=== PATIENT | female | born 1945 | race Hispanic/Latino ===

== ENCOUNTER 2018-06-24 07:20 | Day surgery (SDC) | payer MEDICARE, BC ==
[2018-06-02 11:01] VITALS: BMI 24.3
--- NOTE | 2018-06-24 04:15 | HP ---
REASON FOR ADMISSION: Left heart cath, possible angioplasty, abnormal stress test, chest pain. BRIEF CLINICAL HISTORY: This is a 73-year-old female with a past medical history significant for diabetes, hypertension, hyperlipidemia, complaining of chest discomfort and patient underwent a stress test that is abnormal. The patient is scheduled for elective cardiac cath and possible angioplasty. PAST MEDICAL HISTORY: Significant for diabetes, hypertension, hyperlipidemia. RECENT CARDIAC WORKUP: As follows: Patient had echocardiography done dated 06/07/2018 that shows ejection fraction of 65%, moderate mitral regurgitation, mild tricuspid regurgitation, RV systolic pressure of 33, ejection fraction calculated at 61% dated 06/07/2018. Patient also had stress test done, Lexiscan dated 06/02/2018 that shows probably abnormal myocardial perfusion study, partial reversible anteroseptal apical defect, suspicious for ischemia. Ejection fraction 58% dated 06/02/2018. SOCIAL HISTORY: Denies smoking. Denies any history of alcohol abuse. CURRENT MEDICATIONS: Patient is taking acetaminophen for arthritis, fenofibrate, aspirin, omega 3, insulin, multivitamin, Micardis 20 mg daily, metoprolol tartrate 50 mg twice a day, and metformin 1 g twice a day. ALLERGIES: ALLERGY TO SHELLFISH DERIVED. REVIEW OF SYSTEMS: As per HPI. PHYSICAL EXAMINATION: VITAL SIGNS: Height of the patient is 5 feet 10 inches, weight of the patient is 170 pounds, body mass index 28 kg/sq m. Temperature afebrile, heart rate 73, blood pressure 130/80. HEENT: PERRLA. Extraocular muscles intact. NECK: Supple. No carotid bruits or thyromegaly. CHEST: Clear to auscultation. HEART: S1 and S2 regular. ABDOMEN: Soft. EXTREMITIES: Clubbing and cyanosis negative. LABORATORY DATA: Blood workup pending. IMPRESSION: A 73-year-old female with a past medical history of diabetes, hypertension, hyperlipidemia, abnormal stress test, apical anterolateral defect suspicious of ischemia, ejection fraction 56%, rule out coronary artery disease, moderate mitral regurgitation, mild tricuspid regurgitation, right ventricular systolic pressure of 35, ejection fraction by echo 65%. RECOMMENDATION: We will do cardiac catheterization. Further recommendations after cardiac catheterization. We will await for the blood workup and if found to be within normal limits, we will load patient with 300 mg of Plavix and aspirin. Further recommendations after cardiac catheterization. Risks, benefits, and alternatives discussed with patient. Patient agrees. We will proceed for cardiac catheterization. Thank you, Nayla Spann, for providing us the opportunity in taking care of patient, Dulce Pineda. Nica Morataya MD
[2018-06-24 08:23] LABS: BASO # 0.02 K/mm3 (0.0-2.0); BASO % 0.3 % (0.0-3.0); EOS # 0.2 (0.0-0.7); EOS % 2.8 % (1.5-5.0); GRAN # 3.19 (1.4-6.5); GRAN % 49.2 % (50.0-68.0); LYMPH # 2.4 (1.2-3.4); LYMPH % 36.6 % (22.0-35.0); MEAN CELL VOLUME 88.3 fl (80.0-105.0); MEAN CORPUSCULAR HEMOGLOBIN 28.2 pg (25.0-35.0); MEAN PLATELET VOLUME 10.5 fl (7.0-11.0); MONO # 0.7 (0.1-0.6); MONO % 11.1 % (1.0-6.0); RBC 4.96 10^6/uL (3.5-6.1); RED CELL DISTRIBUTION WIDTH 13.8 % (11.5-14.5); WHITE BLOOD COUNT 6.5 10^3/ul (4.5-11.0)
[2018-06-24 08:27] VITALS: O2SAT 99
[2018-06-24 08:27] LABS: INR 0.97; PARTIAL THROMBOPLASTIN TIME 32.8 Seconds (25.1-36.5); PROTHROMBIN TIME 11.1 SECONDS (9.4-12.5)
[2018-06-24 08:40] LABS: BLOOD UREA NITROGEN 28 mg/dL (7-21); CALCIUM 9.5 mg/dL (8.4-10.5); GFR NON-AFRICAN AMERICAN > 60; HDL CHOLESTEROL 49 mg/dL (29-60)
[2018-06-24 08:50] LABS: LDL CHOLESTEROL 106 mg/dL (0-129)
[2018-06-24] MEDS ORDERED: DiphenhydrAMINE 50 mg/ml Inj ONE (11:09)
[2018-06-24] MEDS ORDERED: Famotidine 20mg/50ml 20 MG/50 ML BAG IVPB ONE (11:09)
[2018-06-24] MEDS ORDERED: Lidocaine PF 2% (5 ml) Inj (For Cardiac Arrhy) ONE (11:44)
[2018-06-24] MEDS ORDERED: Iohexol 350mgl/ml 50 ML ONE (11:45)
[2018-06-24] MEDS ORDERED: Heparin 2,000 ML IV ONE (11:45)
[2018-06-24] MEDS ORDERED: Iodixanol 320 MG/ML 100 ML BOTTLE IV ONE (11:45)
[2018-06-24] MEDS ORDERED: Iodixanol 320 MG/ML 200 ML BOTTLE IV ONE (11:45)
[2018-06-24] MEDS ORDERED: Midazolam 2 MG/2 ML VIAL ONE ×2 (11:59→12:19)
[2018-06-24] MEDS ORDERED: Eptifibatide 20 mg/10mL Inj IVP ONE (12:22)
[2018-06-24] MEDS ORDERED: ACETAMINOPHEN 650 MG PO PRN (13:09)
[2018-06-24] MEDS ORDERED: Sodium Chloride 0.9% 1,000 ML IV SCH (13:15)
--- NOTE | 2018-06-24 13:22 | CPOSTOP ---
DATE: 06/24/2018 CARDIOVASCULAR LAB POST PROCEDURE NOTE DICTATING PHYSICIAN: Nica Morataya MD SAND CLEANING MACHINE OPERATOR: [place] c2 tactical analysis technician. TYPE OF ANESTHESIA: Moderate conscious sedation. Total 2 mg of Versed and 100 of fentanyl given. Periodically started 1 mg of Versed and 50 of fentanyl. PRE-PROCEDURE DIAGNOSES: Chest pain, unstable angina, preoperative for abdominal fistula surgery, abnormal stress test. PROCEDURE PERFORMED: Left heart catheterization and stenting of left anterior descending mid with bare metal stent. FINAL DIAGNOSIS: One-vessel disease, left anterior descending. POST PROCEDURE CONDITION: Post procedure, the patient's condition is stable. VASCULAR ACCESS SITE: Right femoral artery. CLOSURE DEVICE: Angio-Seal. TOTAL RADIATION DOSE: 11,285.7 milligray unit. TOTAL FLUORO TIME: 7.1 minutes. Nica Morataya MD
--- NOTE | 2018-06-24 16:20 | CARD ---
APPROVED REPORT Date of service: 06/24/2018 Procedure(s) performed: Left Heart Catheterization PTCA with Stenting of Mid LAD with BMS HISTORY The patient is a 73 year-old female with a history of : most recent EF: 56%. (EF Method: RADIONUCLIDE), diabetes mellitus with insulin treatment , chronic lung disease, tobacco history() : The patient is a former smoker , hypertension , dyslipidemia , for pre -op clearance for Pancreatic Fistula repair abnormal stress test , apical and anter-lateral ischemia. INDICATION The indication(s) include : positive stress test. CASE TECHNIQUE The patient was brought electively to the Cardiac Catheterization Laboratory in a fasting state and was prepped and draped in a sterile manner. The right femoral groin was infiltrated with 2% Lidocaine subcutaneous anesthesia. A 6 Fr x 11 cm Rica sheath was inserted into the right femoral artery without difficulty. Coronary angiography was performed using coronary diagnostic catheters. The left coronary system was accessed and visualized with a Diagnostic , 5F JL 4 CATH DXT 100 CM catheter. The right coronary system was accessed and visualized with a Diagnostic ,5 Fr JR 4 catheter. The left ventricle was accessed and visualized with a 5F PIGTAIL 145 CATH DXT 110 CM catheter. Left ventricular/Aortic Valve gradient assessed on pullback. Left ventriculogram was performed in MIX projection. Closure device was deployed with a 6 Fr Angio-Seal without any complications. The patient tolerated the procedure well and there were no complications associated with the procedure. Vessel Analysis The patient's coronary anatomy is right dominant. The left main coronary artery is a large size vessel with diffuse calcification noted throughout this vessel and without significant stenosis. The left main bifurcates to the left anterior descending and circumflex. The left anterior descending artery is a medium size vessel with diffuse calcification noted throughout this vessel and with significant stenosis. There is a 80-90% stenosis in the mid segment. 60-70% stenosis in distal segment of LAD The first diagonal branch is a medium size vessel with diffuse calcification noted throughout this vessel and without significant stenosis. The circumflex artery is a medium size vessel with diffuse calcification noted throughout this vessel and without significant stenosis. There is a 30-40% stenosis in the proximal segment. The first obtuse marginal branch is a medium size vessel with diffuse calcification noted throughout this vessel and without significant stenosis. The right coronary artery is a large size vessel with diffuse calcification noted throughout this vessel and without significant stenosis. There is a 30-40% stenosis 40-50% stenosis in distal segment. The right posterior descending artery is a medium size vessel with diffuse calcification noted throughout this vessel and without significant stenosis. The right posterolateral branch is a medium size vessel with diffuse calcification noted throughout this vessel and without significant stenosis. Left Ventricle The left ventricle is normal in size with normal contractility. There was no cardiomyopathy. The left ventricular ejection fraction is estimated to be 55%. The left ventricular end diastolic pressure is 18 mmHg. There was no gradient across the aortic valve upon pullback. PCI Technique Lesion Anticoagulation was achieved with Heparin and Integrellin Bolluses. Percutaneous coronary intervention was performed on the mid left anterior descending artery segment. The lesion stenosis prior to intervention was 80-90% with REINALDO 2 flow. A 6 Fr XB 3.5 Guide Catheter was used to engage the ostium. A Luge 182 Interventional Guidewire was used to cross the lesion. BALLOON DILATION A Balloon catheter 2.0 x 8 mm Mini Trek RX was inserted and inflated up to 10.00atm for 17seconds. STENT DEPLOYMENT A bare metal stent 2.5 x 12 mm Mini Vision BMS was inserted and inflated up to 14atm for 20seconds. Final angiography reveals 0 % stenosis with REINALDO 3 flow. COMMENTS Success PTCA with BMS of MId LAD Conclusion Disha cahng critical Disease Limited to Mid LAD Mild to Moderate Diz in Proxdimal Cx, distal LAD and distal RCA Preserved Lv Fx. EF-55%, EDP-18 mmof hg. Successful PTCA with BMS of Mid LAD. (BMS, Bare metal Used B/c pt has to go for pancreatic Fistula repair, [facility] on 07/25/2018). Recommendations Aggressive Medical TherapyCardiac Risk Reduction Program Weight Loss Reduction Program Continue ASa and plavix for four weeks then DC Plavix. pt can have pancreatic surgery on fifth week ( one week after holding Plavix). Cc; tania Winslow MD
[2018-06-24 16:27] VITALS: TEMP 98.4
[2018-06-24] MEDS ORDERED: Insulin Reg-LOW-Coverage SC SCH (16:30)
[2018-06-24 16:58] LABS: BASO # 0.01 K/mm3 (0.0-2.0); BASO % 0.1 % (0.0-3.0); GRAN # 6.32 (1.4-6.5); GRAN % 89.8 % (50.0-68.0); HEMOGLOBIN 13.5 g/dL (12.0-16.0); LYMPH # 0.6 (1.2-3.4); LYMPH % 9.1 % (22.0-35.0); MEAN CELL VOLUME 87.6 fl (80.0-105.0); MEAN CORPUSCULAR HEMOGLOBIN 28.3 pg (25.0-35.0); MEAN CORPUSCULAR HGB CONC 32.3 g/dl (31.0-37.0); MEAN PLATELET VOLUME 10.2 fl (7.0-11.0); MONO # 0.1 (0.1-0.6); RBC 4.77 10^6/uL (3.5-6.1); RED CELL DISTRIBUTION WIDTH 13.7 % (11.5-14.5)
[2018-06-24 17:10] LABS: BLOOD UREA NITROGEN 24 mg/dL (7-21); CALCIUM 9.1 mg/dL (8.4-10.5); GFR NON-AFRICAN AMERICAN > 60
[2018-06-24 17:48] VITALS: BP 127/63; PULSE 83; RESP 22
--- NOTE | 2018-06-25 09:48 | CARD ---
APPROVED REPORT Date of service: 06/24/2018 EKG Measurement Heart [id number] <Conclusion> Sinus rhythm with 1st degree AV block LAD PRWP NSSTW changes Prolonged QTc
[2018-06-25] MEDS ORDERED: Non Formulary Medication (Multivitamin [Daily Vite] 1 TAB) PO SCH (10:00)
[2018-06-25] MEDS ORDERED: INSULIN GLARGINE HUM REC ANLOG 15 UNIT SQ SCH (10:00)
== END 2018-06-24 21:00 | disposition home or self-care (01) ==
LOC: CATH 07:20 → 2RSO 13:25 → CATH 21:00
PROVIDERS: ATTEND Internal Medicine Cardiovascular Disease
DX: I25.10 Atherosclerotic heart disease of native coronary artery without angina pectoris (principal); I10 Essential (primary) hypertension; E11.9 Type 2 diabetes mellitus without complications; E78.5 Hyperlipidemia, unspecified
CPT/HCPCS: 36415; 80048; 80061; 82948; 85025; 85175; 85610; 85730; 86850; 86900; 92928; 93005; 93458; 99152; 99153; C1725; C1760; C1769 ×2; C1876; C1887 ×2; C2629; J0360; J1200; J1327; J1644 ×2; J2250; J2405; J2930; J3010; J7030; Q9966; Q9967 ×2